=== PATIENT | female | born 1995 | race Caucasian/White ===

== ENCOUNTER 2022-07-06 23:36 | Emergency (ER) | payer MEDICAID, SELFPAY ==
[2022-07-06 23:46] VITALS: BP 136/102; PULSE 91; RESP 22; TEMP 36.5; O2SAT 98
--- NOTE | 2022-07-07 01:10 | ED.GENADULT ---
HPI - General Adult General Chief complaint: Anxiety Stated complaint: chest pain, nausea Time Seen by Provider: 07/07/22 00:38 Source: patient Mode of arrival: ambulatory Limitations: no limitations History of Present Illness HPI narrative: 27-year-old female with a history of anxiety disorder presents to the emergency department with feeling of chest tightness and anxiety. She has a known history of anxiety disorder, sees a mental health provider for this. She reports that she takes BuSpar, Wellbutrin and trazodone on a regular basis. She was started on focal in a few days ago. She has had very poor sleep since starting the medication. She woke at 3:00 p.m. today and took her Focalin. She started having feeling of chest tightness and increased anxiety a few hours later. She still has the anxiety now. No syncope, no seizure activity, no other stimulant use in the past. She has not had excessive amounts of caffeine. No marijuana or other hallucinogens. No shortness of breath, neurological changes. She feels like her symptoms are likely related to her medication but would like confirmation of this. She has no history of thyroid disease. She reports that she has had some basic blood screening through her health providers but nothing recent. Denies chance of . No fevers or other recent illness. No history of underlying cardiac disease, thyroid disease. Denies illicit drug use. Symptoms have improved overall but she admits that she feels more anxious and hospitals. Past medical history is notable for anxiety disorder, denies any other chronic long-term health problems. Denies recent surgery. Home meds are BuSpar, Wellbutrin, trazodone and newly started focalin. Socially, she denies hallucinogens co [place] water, illicit drugs. Denies alcohol. Shield at her family history is notable for diabetes though I am not sure how this is pertinent. ROS is notable for the generalized, mental health and cardiac symptoms as above, otherwise denies times 12 systems. Exam Const: Vital Signs, click to edit/add: Vital Signs - 24 hr 07/06/22 23:46 Temperature 97.7 F Pulse Rate [Right Pulse Oximeter] 91 Respiratory Rate 22 Blood Pressure [Le ft Upper Arm] 136/102 H Pulse Oximetry 98 Oxygen Delivery Me thod Room Air Documenting provider has reviewed patient's vital signs: yes Other: Anxious with good insight. Thought process is logical. Anxiety seemed markedly out of proportion to situation. HENMT: Common normals: normocephalic Head and scalp: normocephalic Face and sinus: normal facial exam Mouth: oral and palatal mucosa normal Throat: posterior oropharynx normal Eye: Common normals: conjunctivae normal General eye: normal appearance of both eyes Conjunctiva: conjunctiva(e) normal Resp: Common normals: normal respiratory effort, no use of accessory muscles and clear to auscultation bilaterally Effort & inspection: able to speak in complete sentences Auscultation: clear to auscultation bilaterally Cardio: Common normals: regular rate, regular rhythm, S1 normal heart sound, S2 normal heart sound, no murmurs and peripheral pulses 2+ throughout Rate: regular rate Rhythm: regular rhythm Heart sounds: S1 normal and S2 normal Peripheral pulses: pulses 2+ throughout Neuro: Speech: speech normal Motor exam: no tremor noted and no movement abnormalities noted Psych: Common normals: thought process normal and speech normal Speech: normal speech Mood and affect: anxious Thought process: normal thought process Thought content: normal thought content Attention/concentration: attention grossly intact Insight: insight good Judgement: fair Skin: Common normals: no rashes or lesions noted Narrative: No signs of trauma or self-injury General skin exam: no rashes or lesions noted Course Vital Signs Vital signs: Initial Vital Signs Temperature 97.7 F 07/06/22 23:46 Temperature Source Temporal Artery Scan 07/06/22 23:46 Pulse Rate 91 07/06/22 23:46 Pulse Rhythm Regular 07/06/22 23:46 Respiratory Rate 22 07/06/22 23:46 Blood Pressure 136/102 H 07/06/22 23:46 Blood Pressure Mean 113 07/06/22 23:46 Blood Pressure Position Sitting 07/06/22 23:46 Pulse Oximetry 98 07/06/22 23:46 Oxygen Delivery Method Room Air 07/06/22 23:46 Vital Signs Temperature 97.7 F 07/06/22 23:46 Pulse Rate 91 07/06/22 23:46 Respiratory Rate 22 07/06/22 23:46 Blood Pressure 136/102 H 07/06/22 23:46 Pulse Oximetry 98 07/06/22 23:46 Oxygen Delivery Method Room Air 07/06/22 23:46 Temperature 97.7 F 07/06/22 23:46 Pulse Rate 91 07/06/22 23:46 Respiratory Rate 22 07/06/22 23:46 Blood Pressure 136/102 H 07/06/22 23:46 Pulse Oximetry 98 07/06/22 23:46 Oxygen Delivery Method Room Air 07/06/22 23:46 Medical Decision Making MDM Narrative Medical decision making narrative: Normal vital signs. Strongly suspect medication side effect, cannot exclude underlying arrhythmia. Recommend screening EKG. Vital signs reviewed. Tachycardia has resolved with rest. Counseled that the insomnia and increased anxiety or very much likely due to her Focalin. Discontinuing the medication should improve her symptoms within 12 hours. Offered Vistaril to help counteract side effects, do not recommend benzodiazepines as I do not feel as though she has great coping skills and will be a repeat visitor to the emergency department for more of those. If her mental health provider thought it was appropriate for her to have these on hand, she would have been prescribed these. Counseled that she may continue her Wellbutrin and BuSpar and she should contact her primary care provider for more information and discussion regarding stimulants and if restarting any of these is right for her. She will discontinue the focalin for now. ECG Data Attestation: I personally reviewed and interpreted this ECG as follows: Prior ECG tracings: not available for review Interpretation: Normal sinus rhythm with rate of 76. Normal axis. Excellent R-wave progression with no ST or T-wave abnormalities or any other signs of ischemia. Discharge Plan Discharge Clinical Impression: Drug side effects Patient Disposition: Home, Self-Care Condition: Improved Instructions: Adverse Drug Reaction (ED) Additional Instructions: As we discussed, your symptoms are very consistent with side effects of stimulant medication. These may be amplified by your underlying anxiety disorder and use of Wellbutrin. For now, you will discontinue the Focalin. It may take up to 12 more hours for your symptoms to resolve. I have given you a small dose of Vistaril, a mild sedating medication to help neutralize these slightly. It will not make the anxiety go away entirely. It is okay to continue your BuSpar. I would recommend that you contact the person prescribing your medications to discuss alternatives. Together, you can decide if trying another medication in this family is worthwhile for you. Your likely to have similar side effects from most of the stimulants. Your fully cleared to return to work or school. Your EKG was otherwise normal today. This indicates that there is no underlying problem with the heart. Activity Level: No Restrictions Discharge Diet: Regular Stand Alone Forms: [facility] Info Instructions
[2022-07-07] MEDS: hydrOXYzine pamoate 25 MG CAPSULE 50 MG PO (01:15)
[2022-07-07 01:43] VITALS: BP 126/82; PULSE 84; RESP 18; O2SAT 99
== END 2022-07-07 01:49 | disposition home or self-care (01) ==
PROVIDERS: Emergency Provider Family Medicine
DX: R07.9 Chest pain, unspecified (principal); F41.9 Anxiety disorder, unspecified; T50.905A Adverse effect of unspecified drugs, medicaments and biological substances, initial encounter
CPT/HCPCS: 93005; 99282; 99283; A9270